=== PATIENT | female | born 1975 | race Caucasian/White ===

== ENCOUNTER 2016-12-17 15:42 | Emergency (ER) | payer BC ==
[2016-12-17] MEDS ORDERED: PENICILLIN G BENZATHINE 1.2 MILLION UNIT/2 ML DISP.SYRIN IM ONE (15:55)
[2016-12-17] MEDS ORDERED: ONDANSETRON ODT 4 MG TAB (6 TAB/DSPK) PO PRN (15:55)
[2016-12-17] MEDS ORDERED: ONDANSETRON 4 MG TAB.RAPDIS SL ONE (15:55)
--- NOTE | 2016-12-17 15:58 | ER Document Report ---
ED General - General Chief Complaint: Nausea/Vomiting Stated Complaint: SORE THROAT,COUGH,VOMITING Time Seen by Provider: 12/17/16 15:50 Mode of Arrival: Ambulatory Information source: Patient TRAVEL OUTSIDE OF THE [place] IN LAST 30 DAYS: No - HPI Patient complains to provider of: sore throat Onset: Last week Onset/Duration: Persistent Quality of pain: Achy Associated symptoms: Body/muscle aches, Chills, Headache, Nausea, Vomiting Exacerbated by: Denies Relieved by: Denies Notes: Patient is a 41-year-old female who presents to the emergency room complaining of sore throat 1 week with subjective fevers, yesterday she had vomiting and diarrhea but has been able to tolerate p.o. intake today, she denies any abdominal pain no sick contacts, she does report coughing up some mucus that is suspect with blood at times - Related Data Allergies/Adverse Reactions: No Known Allergies Allergy (Verified 12/17/16 15:48) Past Medical History - General Information source: Patient - Social History Smoking Status: Current Every Day Smoker Family History: Reviewed & Not Pertinent Patient has suicidal ideation: No Patient has homicidal ideation: No - Past Medical History Cardiac Medical History: Reports: Hx Hypertension Endocrine Medical History: Reports: Hx Diabetes Mellitus Type 2 Renal/ Medical History: Denies: Hx Peritoneal Dialysis Musculoskeltal Medical History: Reports Hx Arthritis, Reports Hx Musculoskeletal Deformity Psychiatric Medical History: Reports: Hx Depression - Immunizations Hx Diphtheria, Pertussis, Tetanus Vaccination: Yes Review of Systems - Review of Systems Constitutional: See HPI EENT: See HPI Cardiovascular: No symptoms reported Respiratory: See HPI Gastrointestinal: See HPI Genitourinary: No symptoms reported Female Genitourinary: No symptoms reported Musculoskeletal: No symptoms reported Skin: No symptoms reported Hematologic/Lymphatic: No symptoms reported Neurological/Psychological: Headaches -: Yes All other systems reviewed and negative Physical Exam - Vital signs Vitals: Temp Pulse Resp BP Pulse Ox 98.3 F 74 16 145/84 H 98 12/17/16 15:46 12/17/16 15:46 12/17/16 15:46 12/17/16 15:46 12/17/16 15:46 Interpretation: Normal - General General appearance: Appears well, Alert - HEENT Head: Normocephalic, Atraumatic Eyes: Normal Conjunctiva: Normal Extraocular movements intact: Yes Eyelashes: Normal Pupils: PERRL Ears: Normal External canal: Normal Tympanic membrane: Normal Sinus: Normal Nasal: Normal Mouth/Lips: Normal Pharynx: Erythema Neck: Other - Submandibular lymphadenopathy - Respiratory Respiratory status: No respiratory distress Chest status: Nontender Breath sounds: Normal Chest palpation: Normal - Cardiovascular Rhythm: Regular Heart sounds: Normal auscultation Murmur: No - Abdominal Inspection: Normal Distension: No distension Bowel sounds: Normal Tenderness: Nontender Organomegaly: No organomegaly - Back Back: Normal, Nontender - Extremities General upper extremity: Normal inspection, Nontender, Normal color, Normal ROM , Normal temperature General lower extremity: Normal inspection, Nontender, Normal color, Normal ROM , Normal temperature, Normal weight bearing. No: Tiffanie's sign - Neurological Neuro grossly intact: Yes Cognition: Normal Orientation: AAOx4 Rea Coma Scale Eye Opening: Spontaneous Saurav Coma Scale Verbal: Oriented Rea Coma Scale Motor: Obeys Commands Saurav Coma Scale Total: 15 Speech: Normal Motor strength normal: LUE, RUE, LLE, RLE Sensory: Normal - Psychological Associated symptoms: Normal affect, Normal mood - Skin Skin Temperature: Warm Skin Moisture: Dry Skin Color: Normal Course - Re-evaluation Re-evalutation: 12/17/16 16:18 Patient's physical exam findings consistent with strep pharyngitis, she was given a Bicillin injection, she is also had some vomiting over the past 2 days, but is tolerating p.o. intake at time of evaluation, she was given a Zofran Dosepak, advised to take Tylenol or Motrin as needed for fever or pain, follow- up with her primary care provider or return if symptoms worsen, patient acknowledges understanding and agreement with this plan - Vital Signs Vital signs: Temp Pulse Resp BP Pulse Ox 98.3 F 74 16 145/84 H 98 12/17/16 15:46 12/17/16 15:46 12/17/16 15:46 12/17/16 15:46 12/17/16 15:46 - Diagnostic Test Radiology reviewed: Image reviewed, Reports reviewed Discharge - Discharge Clinical Impression: Strep pharyngitis Condition: Stable Disposition: HOME, SELF-CARE Instructions: Strep Throat ([facility]) Additional Instructions: Follow up with your primary care provider in one to 2 days. Return to the emergency room immediately if symptoms worsen or any additional concerns. Quit Smoking! Forms: Smoking Cessation Education
--- NOTE | 2016-12-17 16:22 | RADIOLOGY REPORT (SQ) ---
EXAM DESCRIPTION: CHEST PA/LAT COMPLETED DATE/TIME: 12/17/2016 4:13 pm REASON FOR STUDY: cough COMPARISON: None. EXAM PARAMETERS: NUMBER OF VIEWS: two views TECHNIQUE: Digital Frontal and Lateral radiographic views of the chest acquired. RADIATION DOSE: NA LIMITATIONS: none FINDINGS: LUNGS AND PLEURA: No opacities, masses or pneumothorax. No pleural effusion. MEDIASTINUM AND HILAR STRUCTURES: No masses or contour abnormalities. HEART AND VASCULAR STRUCTURES: Heart normal size. No evidence for failure. BONES: No acute findings. HARDWARE: None in the chest. OTHER: No other significant finding. IMPRESSION: NO SIGNIFICANT RADIOGRAPHIC FINDING IN THE CHEST. TECHNICAL DOCUMENTATION: JOB ID: [id number] [email or web address]- All Rights Reserved
[2016-12-17 16:44] VITALS: BP 144/80
== END 2016-12-17 16:40 | disposition home or self-care (01) ==
LOC: ER 15:42
DX: J02.0 Streptococcal pharyngitis (principal); R11.2 Nausea with vomiting, unspecified; J02.9 Acute pharyngitis, unspecified; R05 Cough; R19.7 Diarrhea, unspecified
CPT/HCPCS: 99283; 96372; 71020; S0119; J0561

== ENCOUNTER 2017-08-07 14:14 | Inpatient (IN) | payer BC ==
[2017-08-07] MEDS ORDERED: ACETAMINOPHEN 325 MG TABLET PO ONE (14:38)
[2017-08-07] MEDS ORDERED: NORMAL SALINE 1000 ML 1,000 ML IV ONE (14:38)
[2017-08-07] MEDS ORDERED: AZITHROMYCIN INJ 500 MG VIAL IV ONE (14:38)
[2017-08-07] MEDS ORDERED: IPRATROPIUM/ALBUTEROL 0.5-2.5 MG/3 ML AMPUL NEB ONE ×2 (14:39→15:29)
[2017-08-07] MEDS ORDERED: CEFTRIAXONE 2 GM/D5W RTU 2 GM/50 ML RTUPB IV ONE (14:39)
--- NOTE | 2017-08-07 14:40 | ER Document Report ---
ED Medical Screen (RME) - General Chief Complaint: Breathing Difficulty Stated Complaint: DIFFICULTY BREATHING Time Seen by Provider: 08/07/17 14:38 Notes: 3 days of cough cold congestion shortness of breath and fevers. Patient is a smoker. She feels she is very tight. Oxygen saturations are noted to be 85% on room air with tachypnea and tachycardia at triage. TRAVEL OUTSIDE OF THE [place] IN LAST 30 DAYS: No - Related Data Allergies/Adverse Reactions: No Known Allergies Allergy (Verified 08/07/17 14:19) Past Medical History - Past Medical History Cardiac Medical History: Reports: Hx Hypertension Endocrine Medical History: Reports: Hx Diabetes Mellitus Type 2 Renal/ Medical History: Denies: Hx Peritoneal Dialysis Musculoskeltal Medical History: Reports Hx Arthritis, Reports Hx Musculoskeletal Deformity Psychiatric Medical History: Reports: Hx Depression - Immunizations Hx Diphtheria, Pertussis, Tetanus Vaccination: Yes Physical Exam - Vital signs Vitals: Temp Pulse Resp BP Pulse Ox 97.8 F 131 H 28 H 163/100 H 86 L 08/07/17 14:25 08/07/17 14:25 08/07/17 14:25 08/07/17 14:25 08/07/17 14:25 Course - Vital Signs Vital signs: Temp Pulse Resp BP Pulse Ox 97.8 F 131 H 28 H 163/100 H 86 L 08/07/17 14:25 08/07/17 14:25 08/07/17 14:25 08/07/17 14:25 08/07/17 14:25
[2017-08-07] MEDS ORDERED: METHYLPREDNISOLONE INJ 125 MG/2 ML SDV IV ONE (14:53)
--- NOTE | 2017-08-07 14:59 | ER Document Report ---
ED Respiratory Problem - General Chief Complaint: Breathing Difficulty Stated Complaint: DIFFICULTY BREATHING Time Seen by Provider: 08/07/17 14:38 Information source: Patient, Relative TRAVEL OUTSIDE OF THE [place] IN LAST 30 DAYS: No - HPI Patient complains to provider of: Short of breath Onset: Yesterday Duration: Worse/persistent Initiating Event: Other - None Quality of pain: No pain Severity: Severe Pain Level: 5 Context: Smoker Chest pain/discomfort: Tightness, Worse with deep breaths Cough: Nonproductive At home treatment: denies: Bronchodilators, CPAP, Diuretics, Inhaled steroids, Oral steroids, Oxygen, Singulair, Theophylline Associated symptoms: Congestion, Cough, Difficulty breathing, Heart racing, Short of breath. denies: Fever Similar symptoms previously: No Recently seen / treated by doctor: No - Related Data Allergies/Adverse Reactions: No Known Allergies Allergy (Verified 08/07/17 14:19) Past Medical History - General Information source: Patient - Social History Smoking Status: Current Every Day Smoker - One half packs per day Smoking Education Provided: Yes Frequency of alcohol use: None Drug Abuse: None Lives with: Spouse/Significant other Family History: Reviewed & Not Pertinent Patient has suicidal ideation: No Patient has homicidal ideation: No - Past Medical History Cardiac Medical History: Reports: Hx Hypertension Pulmonary Medical History: Reports: Other - Asthma with EENT Medical History: Reports: None Neurological Medical History: Reports: None Endocrine Medical History: Reports: Hx Diabetes Mellitus Type 2 Renal/ Medical History: Reports: None. Denies: Hx Peritoneal Dialysis Malignancy Medical History: Reports: None GI Medical History: Reports: None Musculoskeltal Medical History: Reports Hx Arthritis, Reports Hx Musculoskeletal Deformity Psychiatric Medical History: Reports: Hx Depression Traumatic Medical History: Reports: None Surgical Hx: Negative Past Surgical History: Reports: None - Immunizations Hx Diphtheria, Pertussis, Tetanus Vaccination: Yes History of Influenza Vaccine for 04/2017 - 08/2017 Season: No Review of Systems - Review of Systems Constitutional: No symptoms reported EENT: See HPI Cardiovascular: No symptoms reported Respiratory: See HPI Gastrointestinal: No symptoms reported Genitourinary: No symptoms reported Female Genitourinary: No symptoms reported Musculoskeletal: No symptoms reported Skin: No symptoms reported Hematologic/Lymphatic: No symptoms reported Neurological/Psychological: No symptoms reported Physical Exam - Vital signs Vitals: Temp Pulse Resp BP Pulse Ox 97.8 F 131 H 28 H 163/100 H 86 L 08/07/17 14:25 08/07/17 14:25 08/07/17 14:25 08/07/17 14:25 08/07/17 14:25 Interpretation: Tachycardic, Hypoxic - Notes Notes: PHYSICAL EXAMINATION: GENERAL: She with nonrebreather mask on with nebulizer infusing. Patient marked respiratory distress. HEAD: Atraumatic, normocephalic. EYES: Pupils equal round and reactive to light, extraocular movements intact, conjunctiva are normal. ENT: Nares patent, oropharynx clear without exudates. Moist mucous membranes. NECK: Normal range of motion, supple without lymphadenopathy LUNGS: Patient sitting up in bed. Wheezing and rhonchi bilaterally. Positive accessory muscle use. Tachypnic HEART:tachy with Regular rhythm without murmurs ABDOMEN: Soft, nontender, nondistended abdomen. No guarding, no rebound. No masses appreciated. Female : deferred Musculoskeletal: Normal range of motion, no pitting or edema. No cyanosis. NEUROLOGICAL: Cranial nerves grossly intact. Normal speech, normal gait. Normal sensory, motor exams PSYCH: anxious SKIN: Warm, Dry, normal turgor, no rashes or lesions noted. Course - Re-evaluation Re-evalutation: 08/07/17 15:36 To go back and reexamine the patient. She is 96% on 5 L. Her albuterol has finished. Patient still has expiratory and inspiratory wheezing bilaterally with mild respiratory distress. She also has bilateral rhonchi. Chest x-ray looks within normal limits. I will order continuous nebulizer for the patient. I did talk to Dr. Singletary patient will be admitted to telemetry. It is aware and agreeable to the plan. 08/07/17 15:38 Labs- All tests 24 hr 08/07/17 08/07/17 08/07/17 14:55 14:55 14:55 WBC 20.5 H RBC 3.90 Hgb 12.2 Hct 35.8 L MCV 92 MCH 31.4 MCHC 34.2 RDW 14.3 H Plt Count 427 Total Counted 100 Seg Neutrophils % Not Reportable Seg Neuts % (Manual) 80 H Lymphocytes % Not Reportable Lymphocytes % (Manual) 6 L Monocytes % Not Reportable Monocytes % (Manual) 7 Eosinophils % Not Reportable Eosinophils % (Manual) 7 H Basophils % Not Reportable Basophils % (Manual) 0 Absolute Neutrophils Not Reportable Abs Neuts (Manual) 16.4 H Absolute Lymphocytes Not Reportable Abs Lymphs (Manual) 1.2 Absolute Monocytes Not Reportable Abs Monocytes (Manual) 1.4 Absolute Eosinophils Not Reportable Absolute Eos (Manual) 1.4 H Absolute Basophils Not Reportable Abs Basophils (Manual) 0.0 Toxic Granulation SLIGHT Platelet Comment ADEQUATE Polychromasia SLIGHT VBG pH VBG pCO2 VBG HCO3 VBG Base Excess Sodium 137.4 Potassium 3.7 Chloride 99 Carbon Dioxide 30 Anion Gap 8 BUN 7 Creatinine 0.57 Est GFR ( Amer) > 60 Est GFR (Non-Af Amer) > 60 Glucose 124 H Lactic Acid 1.4 Calcium 9.9 Total Bilirubin 0.4 Direct Bilirubin 0.4 Neonat Total Bilirubin Not Reportable Neonat Direct Bilirubin Not Reportable Neonat Indirect Bili Not Reportable AST 23 ALT 18 Alkaline Phosphatase 80 Total Protein 7.3 Albumin 4.2 08/07/17 14:55 WBC RBC Hgb Hct MCV MCH MCHC RDW Plt Count Total Counted Seg Neutrophils % Seg Neuts % (Manual) Lymphocytes % Lymphocytes % (Manual) Monocytes % Monocytes % (Manual) Eosinophils % Eosinophils % (Manual) Basophils % Basophils % (Manual) Absolute Neutrophils Abs Neuts (Manual) Absolute Lymphocytes Abs Lymphs (Manual) Absolute Monocytes Abs Monocytes (Manual) Absolute Eosinophils Absolute Eos (Manual) Absolute Basophils Abs Basophils (Manual) Toxic Granulation Platelet Comment Polychromasia VBG pH 7.41 VBG pCO2 45.9 VBG HCO3 28.3 VBG Base Excess 3.1 Sodium Potassium Chloride Carbon Dioxide Anion Gap BUN Creatinine Est GFR ( Amer) Est GFR (Non-Af Amer) Glucose Lactic Acid Calcium Total Bilirubin Direct Bilirubin Neonat Total Bilirubin Neonat Direct Bilirubin Neonat Indirect Bili AST ALT Alkaline Phosphatase Total Protein Albumin 08/07/17 15:39 Chest X-Ray 08/07/17 14:38 IMPRESSION: NO ACUTE RADIOGRAPHIC FINDING IN THE CHEST. - Vital Signs Vital signs: Temp Pulse Resp BP Pulse Ox 97.8 F 131 H 28 H 163/100 H 86 L 08/07/17 14:25 08/07/17 14:25 08/07/17 14:25 08/07/17 14:25 08/07/17 14:25 - Laboratory Result Diagrams: 08/07/17 14:55 08/07/17 14:55 Laboratory results interpreted by me: 08/07/17 08/07/17 14:55 14:55 WBC 20.5 H Hct 35.8 L RDW 14.3 H Glucose 124 H - Diagnostic Test Radiology reviewed: Image reviewed, Reports reviewed Discharge - Discharge Clinical Impression: Hypoxia, Respiratory distress, Wheezing Disposition: ADMITTED INPATIENT Admitting Provider: [facility] Unit Admitted: Telemetry
[2017-08-07 15:11] LABS: VENOUS BLOOD BASE EXCESS 3.1 mmol/L; VENOUS BLOOD HCO3 28.3 mmol/L (20-32); VENOUS BLOOD PCO2 45.9 mmHg (35-63); VENOUS BLOOD PH 7.41 (7.30-7.42)
[2017-08-07 15:13] LABS: HEMATOCRIT 35.8 % (36.0-47.0); HEMOGLOBIN 12.2 g/dL (12.0-15.5); MEAN CORPUSCULAR HEMOGLOBIN 31.4 pg (27.0-33.4); MEAN CORPUSCULAR HGB CONC 34.2 g/dL (32.0-36.0); MEAN CORPUSCULAR VOLUME 92 fl (80-97); PLATELET COUNT 427 10^3/uL (150-450); RED CELL DISTRIBUTION WIDTH 14.3 % (11.5-14.0); WHITE BLOOD COUNT 20.5 10^3/uL (4.0-10.5)
--- NOTE | 2017-08-07 15:13 | RADIOLOGY REPORT (SQ) ---
EXAM DESCRIPTION: CHEST SINGLE VIEW COMPLETED DATE/TIME: 08/07/2017 3:06 pm REASON FOR STUDY: sob COMPARISON: 12/17/2016 chest film EXAM PARAMETERS: NUMBER OF VIEWS: One view. TECHNIQUE: Single frontal radiographic view of the chest acquired. RADIATION DOSE: NA LIMITATIONS: None. FINDINGS: LUNGS AND PLEURA: No opacities, masses or pneumothorax. No pleural effusion. MEDIASTINUM AND HILAR STRUCTURES: No masses. Contour normal. HEART AND VASCULAR STRUCTURES: Heart normal in size. Normal vasculature. BONES: No acute findings. HARDWARE: None in the chest. OTHER: No other significant finding. IMPRESSION: NO ACUTE RADIOGRAPHIC FINDING IN THE CHEST. TECHNICAL DOCUMENTATION: JOB ID: [id number] [employer]- All Rights Reserved
[2017-08-07 15:25] LABS: ALANINE AMINOTRANSFERASE 18 U/L (9-52); ALBUMIN 4.2 g/dL (3.5-5.0); ALKALINE PHOSPHATASE 80 U/L (38-126); ANION GAP 8 (5-19); ASPARTATE AMINO TRANSFERASE 23 U/L (14-36); BILIRUBIN,DIRECT 0.4 mg/dL (0.0-0.4); BILIRUBIN,TOTAL 0.4 mg/dL (0.2-1.3); BLOOD UREA NITROGEN 7 mg/dL (7-20); CALCIUM 9.9 mg/dL (8.4-10.2); CARBON DIOXIDE 30 mmol/L (22-30); CHLORIDE 99 mmol/L (98-107); GLUCOSE 124 mg/dL (75-110); POTASSIUM 3.7 mmol/L (3.6-5.0); SODIUM 137.4 mmol/L (137-145); TOTAL PROTEIN 7.3 g/dL (6.3-8.2)
[2017-08-07] MEDS ORDERED: ALBUTEROL SULFATE 0.083% NEB 2.5 MG/3 ML AMPUL NEB ONE (15:29)
[2017-08-07 15:35] LABS: ABSOLUTE LYMPHOCYTES# (MANUAL) 1.2 10^3/uL (0.5-4.7); ABSOLUTE MONOCYTES # (MANUAL) 1.4 10^3/uL (0.1-1.4); ABSOLUTE NEUTROPHILS# (MANUAL) 16.4 10^3/uL (1.7-8.2); BASOPHILS % (MANUAL) 0 % (0-2); EOSINOPHILS % (MANUAL) 7 % (0-6); LYMPHOCYTES % (MANUAL) 6 % (13-45); MONOCYTES % (MANUAL) 7 % (3-13); PLATELET COMMENT ADEQUATE; POLYCHROMASIA SLIGHT; SEGMENTED NEUTROPHILS % (MAN) 80 % (42-78); TOTAL CELLS COUNTED 100; TOXIC GRANULATION SLIGHT
[2017-08-07] MEDS: MAGNESIUM SULFATE/D5W 1 GM/100 ML RTUPB IV SCH ×2 (16:16→17:37)
[2017-08-07 18:33] LABS: APPEARANCE,URINE SLIGHTLY-CLOUDY; BILIRUBIN,URINE NEGATIVE (NEGATIVE); COLOR,URINE YELLOW; GLUCOSE, URINE NEGATIVE (NEGATIVE); KETONES,URINE NEGATIVE (NEGATIVE); LEUKOCYTE ESTERASE,URINE NEGATIVE (NEGATIVE); NITRITE,URINE NEGATIVE (NEGATIVE); PROTEIN,URINE 30 mg/dL (NEGATIVE); URINE SPECIFIC GRAVITY 1.013; UROBILINOGEN,URINE NEGATIVE mg/dL (<2.0)
[2017-08-07] MEDS ORDERED: (PENDING PHARMACY ID) (Oxycodone Hcl/Acetaminophen [Percocet 10-325 Mg Tablet] 1 EACH) PO PRN (21:01)
--- NOTE | 2017-08-07 21:05 | PDOC H&P ---
History of Present Illness Admission Date/PCP: 08/07/17 16:30 KELSEA KING MD History of Present Illness: TANMAY SIMPSON is a 42 year old fEMALE She came to the emergency room this afternoon for evaluation of shortness of breath coughing wheezing, progressive for the last 3 days. She was seen and evaluated in the emergency room when she arrived the oxygen saturation was 85% on room air the hemogram, WBC 20,000 with a left shift, she was treated with bronchodilators, IV antibiotic. The chest x- ray that was done did not show any acute infiltrate to suggest pneumonia. Past Medical History Cardiac Medical History: Reports: Hypertension Pulmonary Medical History: Reports: Other - Asthma with Endocrine Medical History: Reports: Diabetes Mellitus Type 2 Psychiatric Medical History: Reports: Depression Traumatic Medical History: Reports: None Past Surgical History Past Surgical History: Reports: None Social History Lives with: Spouse/Significant other Smoking Status: Current Every Day Smoker Cigarettes Packs Per Day: 2 Number of Years Smokin Last Time Smoked: 08/04/17 Frequency of Alcohol Use: Rare Hx Recreational Drug Use: No Drugs: None Hx Prescription Drug Abuse: No - Advance Directive Resuscitation Status: Full Code Family History Family History: Reviewed & Not Pertinent Parental Family History Reviewed: Yes Children Family History Reviewed: Yes Sibling(s) Family History Reviewed.: Yes Medication/Allergy Home Medications: Amitriptyline HCl [Elavil 10 Mg Tablet] 10 mg PO QHS 08/07/17 Lisinopril/Hydrochlorothiazide [Lisinopril-Hctz 20-25 mg Tab] 1 each PO DAILY Metformin HCl [Glucophage 500 mg Tablet] 500 mg PO BIDACBS 08/07/17 Naproxen [Naprosyn] 500 mg PO BID 08/07/17 Oxycodone HCl/Acetaminophen [Percocet 10-325 Mg Tablet] 1 each PO Q6HP PRN 08/07 Tizanidine HCl [Zanaflex 4 Mg Tablet] 4 mg PO QHS 08/07/17 Allergies/Adverse Reactions: No Known Allergies Allergy (Verified 08/07/17 14:19) Review of Systems Constitutional: ABSENT: chills, fever(s), headache(s), weight gain, weight loss Eyes: ABSENT: visual disturbances Ears: ABSENT: hearing changes Cardiovascular: PRESENT: dyspnea on exertion Respiratory: PRESENT: cough, dyspnea Gastrointestinal: ABSENT: abdominal pain, constipation, diarrhea, hematemesis, hematochezia, nausea, vomiting Genitourinary: ABSENT: dysuria, hematuria Musculoskeletal: ABSENT: joint swelling Integumentary: ABSENT: rash, wounds Neurological: ABSENT: abnormal gait, abnormal speech, confusion, dizziness, focal weakness, syncope Psychiatric: ABSENT: anxiety, depression, homidical ideation, suicidal ideation Endocrine: ABSENT: cold intolerance, heat intolerance, menstrual abnormalities, polydipsia, polyuria Hematologic/Lymphatic: ABSENT: easy bleeding, easy bruising, lymphadenopathy Physical Exam Vital Signs: Temp Pulse Resp BP Pulse Ox 98.1 F 109 H 17 158/88 H 96 08/07/17 19:58 08/07/17 20:09 08/07/17 19:58 08/07/17 19:58 08/07/17 19:58 General appearance: PRESENT: mild distress Head exam: PRESENT: atraumatic, normocephalic Eye exam: PRESENT: conjunctiva pink, EOMI, PERRLA Ear exam: PRESENT: normal external ear exam Mouth exam: PRESENT: moist, tongue midline Respiratory exam: PRESENT: accessory muscle use, retraction, wheezes Cardiovascular exam: PRESENT: RRR, +S1, +S2 Pulses: PRESENT: normal dorsalis pedis pul, +2 pedal pulses bilateral Vascular exam: PRESENT: normal capillary refill GI/Abdominal exam: PRESENT: normal bowel sounds, soft Rectal exam: PRESENT: deferred Neurological exam: PRESENT: alert, awake, oriented to person, oriented to place , oriented to time, oriented to situation, CN II-XII grossly intact Psychiatric exam: PRESENT: appropriate affect, normal mood Skin exam: PRESENT: dry, intact, warm. ABSENT: cyanosis, rash Results Laboratory Results: 08/07/17 17:35 Urine Color YELLOW Urine Appearance SLIGHTLY-CLOUDY Urine pH 6.0 Ur Specific Springer 1.013 Urine Protein 30 H Urine Glucose (UA) NEGATIVE Urine Ketones NEGATIVE Urine Blood NEGATIVE Urine Nitrite NEGATIVE Ur Leukocyte Esterase NEGATIVE Urine WBC (Auto) 7 Urine RBC (Auto) 3 Impressions: Chest X-Ray 08/07/17 14:38 IMPRESSION: NO ACUTE RADIOGRAPHIC FINDING IN THE CHEST. Assessment & Plan - Diagnosis (1) Acute hypoxemic respiratory failure Is this a current diagnosis for this admission?: Yes Plan: Patient presented with acute hypoxemic respiratory failure, differential diagnoses include pneumonia, acute COPD pulmonary embolism the chest x-ray that was done was negative, CTA chest will be ordered to rule out pulmonary embolism , pneumonia or other causes, on admission she was wheezing, this could be from acute COPD, the leukocytosis is worrisome for infectious process or other causes , she is admitted to be started on IV antibiotic, bronchodilators.CTA chest was done it was negative for any pulmonary embolus, there was groundglass appearance of the parenchyma of the lung there was no definite infiltrate, this is probably acute COPD, she is a diabetic will order off on steroid for now will be treated aggressively with bronchodilators if no relief we start patient on intravenous Solu-Medrol
[2017-08-07 21:30] LABS: ARTERIAL BLOOD BASE EXCESS 0.5 mmol/L; ARTERIAL BLOOD FIO2 28%; ARTERIAL BLOOD H2CO3 1.22 mmol/L (1.05-1.35); ARTERIAL BLOOD HCO3 25.1 mmol/L (20-26); ARTERIAL BLOOD O2 SATURATION 95.8 % (94-98); ARTERIAL BLOOD PCO2 40.4 mmHg (35-45); ARTERIAL BLOOD PH 7.41 (7.35-7.45); ARTERIAL BLOOD PO2 78.8 mmHg (80-100); ARTERIAL BLOOD TOTAL CO2 26.3 mmol/L (21-25)
[2017-08-07 21:51] LABS: CREATINE KINASE 112 U/L (30-135); LIPASE 13.4 U/L (23-300); PHOSPHORUS 3.1 mg/dL (2.5-4.5)
[2017-08-07] MEDS ORDERED: METFORMIN HCL 500 MG TABLET PO ONE (22:00)
[2017-08-07 22:05] LABS: AMYLASE < 30 U/L (30-110)
[2017-08-07] MEDS: IPRATROPIUM/ALBUTEROL 0.5-2.5 MG/3 ML AMPUL NEB SCH (22:05)
[2017-08-07 22:08] LABS: FREE T4 (FREE THYROXINE) 1.22 ng/dL (0.78-2.19)
[2017-08-07 22:15] LABS: NT PRO BNP 472 pg/mL (<125)
[2017-08-07] MEDS: OXYCODONE HCL IR 5 MG TABLET PO PRN (22:20)
[2017-08-07] MEDS: LEVOFLOXACIN 750 MG/D5W RTU 750 MG/150 ML RTUPB IV SCH (22:20)
[2017-08-07] MEDS: NORMAL SALINE 1000 ML 1,000 ML IV PRN (22:21)
[2017-08-07 22:22] LABS: THYROID STIMULATING HORMONE 0.45 uIU/mL (0.47-4.68)
--- NOTE | 2017-08-07 22:22 | RADIOLOGY REPORT (SQ) ---
EXAM DESCRIPTION: CTA CHEST COMPLETED DATE/TIME: 08/07/2017 9:54 pm REASON FOR STUDY: shortness of breath COMPARISON: None TECHNIQUE: CT scan of the chest performed using helical scanning technique with dynamic intravenous contrast injection. Images reviewed with lung, soft tissue and bone windows. Reconstructed coronal and sagittal MPR images reviewed. Additional 3 dimensional post-processing performed to develop Maximal Intensity Projection images (MO P). All images stored on PACS. All CT scanners at this facility use dose modulation, iterative reconstruction, and/or weight based d osing when appropriate to reduce radiation dose to as low as reasonably achievable (ALARA). [facility]: Dose Right [facility]: CareDose [facility]: Dose Right [facility]: Teradose 4D [facility]: [employer] CONTRAST TYPE AND DOSE: contrast/concentration: Isovue 370.00 mg/ml; Total Contrast Delivered: 80.0 ml; Total Saline Delivered: 70.0 ml Contrast bolus optimized for the pulmonary arteries. Not diagnostic for the aorta. RENAL FUNCTION: None required. The patient is less than 50 years old. RADIATION DOSE: CT Rad equipment meets quality standard of care and radiation dose reduction techniq ues were employed. CTDIvol: 14.9 - 32.8 mGy. DLP: 1250 mGy-cm. . LIMITATIONS: Mild breathing motion artifact. FINDINGS: LUNGS AND PLEURA: Scattered areas of ground-glass opacity and subsegmental atelectasis are present in both lungs. No masses, dense consolidation, pneumothorax. No pleural effusions, calcifi cations. AORTA AND GREAT VESSELS: No aneurysm. Contrast bolus not optimized for the aorta. HEART: No pericardial effusion. No significant coronary artery calcifications. PULMONARY ARTERIES: No emboli visualized in the main pulmonary arteries or the segmental branches. HILAR AND MEDIASTINAL STRUCTURES: Small reactive appearing nodes. HARDWARE: None in the chest. UPPER ABDOMEN: No significant findings. Limited exam. THYROID AND OTHER SOFT TISSUES: No masses. No adenopathy. BONES: No acute or significant finding. 3D MIPS: Confirm above findings. OTHER: No other significant finding. IMPRESSION: No emboli visualized in the main pulmonary arteries or the segmental branches.Scattered areas of ground-glass opacity and subsegmental atelectasis are present in both lungs, nonspecific fin dings. No consolidation or pleural effusion. COMMENT: Quality ID # [id number]: Final reports with documentation of one or more dose reduction techniques (e.g., Automated exposure control, adjustment of the mA and/or kV according to patient size, use of iterative reconstruction technique) TECHNICAL DOCUMENTATION: JOB ID: [id number] [employer]- All Rights Reserved
[2017-08-07 22:24] LABS: TROPONIN I < 0.012 ng/mL
[2017-08-08] MEDS: IPRATROPIUM/ALBUTEROL 0.5-2.5 MG/3 ML AMPUL NEB SCH ×11 (00:15→21:18)
[2017-08-08] MEDS: OXYCODONE-ACETAMINOPHEN 5-325 MG TABLET PO PRN ×3 (00:43→15:58)
[2017-08-08 00:56] LABS: APPEARANCE,URINE CLEAR; BILIRUBIN,URINE NEGATIVE (NEGATIVE); COLOR,URINE YELLOW; GLUCOSE, URINE NEGATIVE (NEGATIVE); KETONES,URINE NEGATIVE (NEGATIVE); LEUKOCYTE ESTERASE,URINE NEGATIVE (NEGATIVE); NITRITE,URINE NEGATIVE (NEGATIVE); PROTEIN,URINE 100 mg/dL (NEGATIVE); URINE SPECIFIC GRAVITY 1.056; UROBILINOGEN,URINE NEGATIVE mg/dL (<2.0)
[2017-08-08 01:09] LABS: URINE AMPHETAMINES SCREEN NEGATIVE; URINE BENZODIAZEPINES SCREEN NEGATIVE; URINE COCAINE SCREEN NEGATIVE; URINE METHADONE SCREEN NEGATIVE; URINE PHENCYCLIDINE SCREEN NEGATIVE
[2017-08-08 01:18] LABS: URINE MARIJUANA (THC) SCREEN UNCONFIRMED POSITIVE
[2017-08-08 01:20] LABS: URINE BARBITURATES SCREEN UNCONFIRMED POSITIVE
[2017-08-08 03:57] LABS: ABSOLUTE BASOPHILS # (AUTO) 0.1 10^3/uL (0.0-0.2); ABSOLUTE LYMPHOCYTES (AUTO) 0.9 10^3/uL (0.5-4.7); ABSOLUTE MONOCYTES (AUTO) 0.2 10^3/uL (0.1-1.4); ABSOLUTE NEUT (AUTO) 11.2 10^3/uL (1.7-8.2); BASOPHILS % (AUTO) 0.6 % (0-2); EOSINOPHILS % (AUTO) 0.2 % (0-6); HEMOGLOBIN 11.3 g/dL (12.0-15.5); MEAN CORPUSCULAR HGB CONC 34.1 g/dL (32.0-36.0); MEAN CORPUSCULAR VOLUME 91 fl (80-97); MONOCYTES % (AUTO) 1.8 % (3-13); PLATELET COUNT 411 10^3/uL (150-450); RED BLOOD COUNT 3.63 10^6/uL (3.72-5.28); RED CELL DISTRIBUTION WIDTH 14.5 % (11.5-14.0); SEGMENTED NEUTROPHILS % (AUTO) 90.4 % (42-78); TOTAL CELLS COUNTED % (AUTO) 100 %; WHITE BLOOD COUNT 12.4 10^3/uL (4.0-10.5)
[2017-08-08 04:11] LABS: ALANINE AMINOTRANSFERASE 23 U/L (9-52); ALBUMIN 3.9 g/dL (3.5-5.0); ALKALINE PHOSPHATASE 69 U/L (38-126); ANION GAP 15 (5-19); ASPARTATE AMINO TRANSFERASE 21 U/L (14-36); BILIRUBIN,DIRECT 0.2 mg/dL (0.0-0.4); BILIRUBIN,TOTAL 0.2 mg/dL (0.2-1.3); BLOOD UREA NITROGEN 8 mg/dL (7-20); CALCIUM 9.7 mg/dL (8.4-10.2); CARBON DIOXIDE 26 mmol/L (22-30); CHLORIDE 98 mmol/L (98-107); CHOLESTEROL 178.78 mg/dL (0-200); CREATINE KINASE 120 U/L (30-135); GLUCOSE 186 mg/dL (75-110); SODIUM 138.5 mmol/L (137-145); TOTAL PROTEIN 6.8 g/dL (6.3-8.2); TRIGLYCERIDES 56 mg/dL (<150)
[2017-08-08 04:21] LABS: CREATINE KINASE MB 1.72 ng/mL (<4.55)
[2017-08-08 04:22] LABS: DIRECT LDL 136 mg/dL (<100)
[2017-08-08 04:23] LABS: TROPONIN I < 0.012 ng/mL
[2017-08-08] MEDS: OXYCODONE HCL IR 5 MG TABLET PO PRN ×2 (05:41→11:28)
[2017-08-08] MEDS: METFORMIN HCL 500 MG TABLET PO SCH ×2 (09:17→15:58)
[2017-08-08] MEDS: ENOXAPARIN SODIUM INJ 40 MG/0.4 ML DISP.SYRIN SUBCUT SCH (09:18)
[2017-08-08 11:15] LABS: CREATINE KINASE MB 2.13 ng/mL (<4.55)
[2017-08-08 11:16] LABS: TROPONIN I < 0.012 ng/mL
[2017-08-08] MEDS ORDERED: (PENDING PHARMACY ID) (Lisinopril/Hydrochlorothiazide [Lisinopril-Hctz 20-25 Mg Tab] 1 EAC PO SCH (19:15)
[2017-08-08] MEDS ORDERED: OXYCODONE-ACETAMINOPHEN 5-325 MG TABLET PO ONE (20:30)
[2017-08-08] MEDS ORDERED: OXYCODONE HCL IR 5 MG TABLET PO ONE (20:30)
--- NOTE | 2017-08-08 21:17 | PDOC PROGRESS REPORT ---
Subjective Progress Note for:: 08/08/17 Subjective:: Patient was admitted yesterday for the management of acute hypoxemic respiratory failure due to COPD exacerbation she felt better but on chest auscultation she still wheezing, she will be treated with IV Solu-Medrol Reason For Visit: ACUTE HYPOXEMIC RESPIRATORY FAILURE, CAUSE COPD Physical Exam Vital Signs: Temp Pulse Resp BP Pulse Ox 98.8 F 108 H 18 162/83 H 97 08/08/17 16:00 08/08/17 19:00 08/08/17 18:07 08/08/17 16:00 08/08/17 18:07 Intake & Output 08/07/17 08/08/17 08/09/17 06:59 06:59 06:59 Intake Total 2390 2160 Output Total 1000 Balance 2390 1160 Weight 106 kg General appearance: PRESENT: mild distress Eye exam: PRESENT: PERRLA Respiratory exam: PRESENT: wheezes Cardiovascular exam: PRESENT: +S1, +S2 GI/Abdominal exam: PRESENT: soft Neurological exam: PRESENT: alert Results Laboratory Results: 08/08/17 03:45 08/08/17 03:45 08/07/17 08/07/17 08/07/17 21:20 21:20 21:20 WBC RBC Hgb Hct MCV MCH MCHC RDW Plt Count Seg Neutrophils % Lymphocytes % Monocytes % Eosinophils % Basophils % Absolute Neutrophils Absolute Lymphocytes Absolute Monocytes Absolute Eosinophils Absolute Basophils Carbonic Acid HCO3/H2CO3 Ratio ABG pH ABG pCO2 ABG pO2 ABG HCO3 ABG O2 Saturation ABG Base Excess FiO2 Sodium Potassium Chloride Carbon Dioxide Anion Gap BUN Creatinine Est GFR ( Amer) Est GFR (Non-Af Amer) Glucose Calcium Phosphorus 3.1 Total Bilirubin AST ALT Alkaline Phosphatase Ammonia 8.7 L Total Protein Albumin Triglycerides Cholesterol LDL Cholesterol Direct VLDL Cholesterol HDL Cholesterol Amylase < 30 L Lipase 13.4 L TSH 0.45 L Free T4 1.22 Urine Color Urine Appearance Urine pH Ur Specific [place] Urine Protein Urine Glucose (UA) Urine Ketones Urine Blood Urine Nitrite Ur Leukocyte Esterase Urine WBC (Auto) Urine RBC (Auto) 08/07/17 08/08/17 08/08/17 21:20 00:30 03:45 WBC 12.4 H RBC 3.63 L Hgb 11.3 L Hct 33.0 L MCV 91 MCH 31.0 MCHC 34.1 RDW 14.5 H Plt Count 411 Seg Neutrophils % 90.4 H Lymphocytes % 7.0 L Monocytes % 1.8 L Eosinophils % 0.2 Basophils % 0.6 Absolute Neutrophils 11.2 H Absolute Lymphocytes 0.9 Absolute Monocytes 0.2 Absolute Eosinophils 0.0 Absolute Basophils 0.1 Carbonic Acid 1.22 HCO3/H2CO3 Ratio 20:1 ABG pH 7.41 ABG pCO2 40.4 ABG pO2 78.8 L ABG HCO3 25.1 ABG O2 Saturation 95.8 ABG Base Excess 0.5 FiO2 28% Sodium Potassium Chloride Carbon Dioxide Anion Gap BUN Creatinine Est GFR ( Amer) Est GFR (Non-Af Amer) Glucose Calcium Phosphorus Total Bilirubin AST ALT Alkaline Phosphatase Ammonia Total Protein Albumin Triglycerides Cholesterol LDL Cholesterol Direct VLDL Cholesterol HDL Cholesterol Amylase Lipase TSH Free T4 Urine Color YELLOW Urine Appearance CLEAR Urine pH 6.0 Ur Specific [place] 1.056 Urine Protein 100 H Urine Glucose (UA) NEGATIVE Urine Ketones NEGATIVE Urine Blood NEGATIVE Urine Nitrite NEGATIVE Ur Leukocyte Esterase NEGATIVE Urine WBC (Auto) 3 Urine RBC (Auto) 13 08/08/17 03:45 WBC RBC Hgb Hct MCV MCH MCHC RDW Plt Count Seg Neutrophils % Lymphocytes % Monocytes % Eosinophils % Basophils % Absolute Neutrophils Absolute Lymphocytes Absolute Monocytes Absolute Eosinophils Absolute Basophils Carbonic Acid HCO3/H2CO3 Ratio ABG pH ABG pCO2 ABG pO2 ABG HCO3 ABG O2 Saturation ABG Base Excess FiO2 Sodium 138.5 Potassium 4.0 Chloride 98 Carbon Dioxide 26 Anion Gap 15 BUN 8 Creatinine 0.54 Est GFR ( Amer) > 60 Est GFR (Non-Af Amer) > 60 Glucose 186 H Calcium 9.7 Phosphorus Total Bilirubin 0.2 AST 21 ALT 23 Alkaline Phosphatase 69 Ammonia Total Protein 6.8 Albumin 3.9 Triglycerides 56 Cholesterol 178.78 LDL Cholesterol Direct 136 H VLDL Cholesterol 11.0 HDL Cholesterol 44 Amylase Lipase TSH Free T4 Urine Color Urine Appearance Urine pH Ur Specific [place] Urine Protein Urine Glucose (UA) Urine Ketones Urine Blood Urine Nitrite Ur Leukocyte Esterase Urine WBC (Auto) Urine RBC (Auto) 08/07/17 08/07/17 08/07/17 21:20 21:20 21:20 Creatine Kinase 112 104 CK-MB (CK-2) 1.10 Troponin I < 0.012 NT-Pro-B Natriuret Pep 472 H 08/07/17 08/08/17 08/08/17 21:20 03:45 03:45 Creatine Kinase 120 CK-MB (CK-2) Cancelled 1.72 Troponin I Cancelled < 0.012 NT-Pro-B Natriuret Pep 08/08/17 08/08/17 10:06 10:06 Creatine Kinase 115 CK-MB (CK-2) 2.13 Troponin I < 0.012 NT-Pro-B Natriuret Pep Impressions: Chest/Abdomen CTA 08/07/17 00:00 IMPRESSION: No emboli visualized in the main pulmonary arteries or the segmental branches.Scattered areas of ground-glass opacity and subsegmental atelectasis are present in both lungs, nonspecific findings. No consolidation or pleural effusion. Chest X-Ray 08/07/17 14:38 IMPRESSION: NO ACUTE RADIOGRAPHIC FINDING IN THE CHEST. Assessment & Plan - Diagnosis (1) Acute hypoxemic respiratory failure Is this a current diagnosis for this admission?: Yes (2) Acute exacerbation of chronic obstructive pulmonary disease (COPD) Is this a current diagnosis for this admission?: Yes Plan: Start intravenous Solu-Medrol 125 mg IV every 8 hours
[2017-08-08] MEDS: METHYLPREDNISOLONE INJ 125 MG/2 ML SDV IV SCH (22:45)
[2017-08-08] MEDS: AMITRIPTYLINE HCL 10 MG TABLET PO SCH (22:45)
[2017-08-08] MEDS: LEVOFLOXACIN 750 MG/D5W RTU 750 MG/150 ML RTUPB IV SCH (22:45)
[2017-08-08] MEDS: NORMAL SALINE 1000 ML 1,000 ML IV PRN (22:46)
[2017-08-09] MEDS: IPRATROPIUM/ALBUTEROL 0.5-2.5 MG/3 ML AMPUL NEB SCH ×4 (02:00→19:05)
[2017-08-09] MEDS: OXYCODONE-ACETAMINOPHEN 5-325 MG TABLET PO PRN ×4 (03:09→21:49)
[2017-08-09] MEDS: OXYCODONE HCL IR 5 MG TABLET PO PRN ×4 (03:09→21:49)
[2017-08-09 05:07] LABS: HEMATOCRIT 33.5 % (36.0-47.0); HEMOGLOBIN 11.5 g/dL (12.0-15.5); MEAN CORPUSCULAR HEMOGLOBIN 31.4 pg (27.0-33.4); MEAN CORPUSCULAR HGB CONC 34.2 g/dL (32.0-36.0); MEAN CORPUSCULAR VOLUME 92 fl (80-97); PLATELET COUNT 400 10^3/uL (150-450); RED BLOOD COUNT 3.65 10^6/uL (3.72-5.28); RED CELL DISTRIBUTION WIDTH 14.3 % (11.5-14.0); WHITE BLOOD COUNT 15.6 10^3/uL (4.0-10.5)
[2017-08-09] MEDS: METHYLPREDNISOLONE INJ 125 MG/2 ML SDV IV SCH ×3 (05:19→21:49)
[2017-08-09 05:20] LABS: ALANINE AMINOTRANSFERASE 20 U/L (9-52); ALBUMIN 3.9 g/dL (3.5-5.0); ALKALINE PHOSPHATASE 77 U/L (38-126); ANION GAP 12 (5-19); ASPARTATE AMINO TRANSFERASE 24 U/L (14-36); BILIRUBIN,DIRECT 0.2 mg/dL (0.0-0.4); BILIRUBIN,TOTAL 0.2 mg/dL (0.2-1.3); BLOOD UREA NITROGEN 3 mg/dL (7-20); CALCIUM 9.6 mg/dL (8.4-10.2); CARBON DIOXIDE 25 mmol/L (22-30); CHLORIDE 100 mmol/L (98-107); GLUCOSE 213 mg/dL (75-110); POTASSIUM 3.8 mmol/L (3.6-5.0); SODIUM 137.2 mmol/L (137-145)
[2017-08-09] MEDS: NORMAL SALINE 1000 ML 1,000 ML IV PRN ×2 (05:20→21:49)
[2017-08-09 06:16] LABS: ABSOLUTE LYMPHOCYTES# (MANUAL) 0.3 10^3/uL (0.5-4.7); ABSOLUTE MONOCYTES # (MANUAL) 0.3 10^3/uL (0.1-1.4); ABSOLUTE NEUTROPHILS# (MANUAL) 14.8 10^3/uL (1.7-8.2); BAND NEUTROPHILS % (MANUAL) 1 % (3-5); BASOPHILS % (MANUAL) 0 % (0-2); EOSINOPHILS % (MANUAL) 1 % (0-6); LYMPHOCYTES % (MANUAL) 2 % (13-45); MONOCYTES % (MANUAL) 2 % (3-13); SEGMENTED NEUTROPHILS % (MAN) 94 % (42-78); TOTAL CELLS COUNTED 100
[2017-08-09 06:18] LABS: PLATELET COMMENT ADEQUATE; PLATELET LARGE PRESENT
[2017-08-09] MEDS: HYDROCHLOROTHIAZIDE 25 MG TABLET PO SCH (09:23)
[2017-08-09] MEDS: LISINOPRIL 10 MG TABLET PO SCH (09:23)
[2017-08-09] MEDS: ENOXAPARIN SODIUM INJ 40 MG/0.4 ML DISP.SYRIN SUBCUT SCH (09:23)
[2017-08-09] MEDS: METFORMIN HCL 500 MG TABLET PO SCH ×2 (09:24→17:57)
[2017-08-09] MEDS ORDERED: ALBUTEROL SULFATE 0.083% NEB 2.5 MG/3 ML AMPUL NEB PRN (11:44)
--- NOTE | 2017-08-09 21:42 | PDOC PROGRESS REPORT ---
Subjective Progress Note for:: 08/09/17 Subjective:: Patient was admitted for the management of acute hypoxemic respiratory failure due to acute COPD exacerbation, presently on IV Solu-Medrol she endorses improvement in her condition though on auscultation of her chest she had diffuse expiratory wheezes Reason For Visit: ACUTE HYPOXEMIC RESPIRATORY FAILURE, CAUSE COPD Physical Exam Vital Signs: Temp Pulse Resp BP Pulse Ox 98.8 F 113 H 16 163/87 H 94 08/09/17 19:43 08/09/17 19:43 08/09/17 19:43 08/09/17 19:43 08/09/17 19:43 Intake & Output 08/08/17 08/09/17 08/10/17 06:59 06:59 06:59 Intake Total 2390 2400 1913 Output Total 1350 Balance 2390 1050 1913 Weight 106 kg 106 kg Head exam: PRESENT: atraumatic, normocephalic Eye exam: PRESENT: conjunctiva pink, EOMI, PERRLA Ear exam: PRESENT: normal external ear exam Mouth exam: PRESENT: moist, tongue midline Neck exam: PRESENT: full ROM Respiratory exam: PRESENT: accessory muscle use, wheezes Cardiovascular exam: PRESENT: RRR, +S1, +S2 Pulses: PRESENT: normal dorsalis pedis pul, +2 pedal pulses bilateral Vascular exam: PRESENT: normal capillary refill GI/Abdominal exam: PRESENT: normal bowel sounds, soft Rectal exam: PRESENT: deferred Neurological exam: PRESENT: alert Psychiatric exam: PRESENT: appropriate affect, normal mood Skin exam: PRESENT: dry, intact, warm. ABSENT: cyanosis, rash Results Laboratory Results: 08/09/17 04:45 08/09/17 04:45 08/09/17 08/09/17 04:45 04:45 WBC 15.6 H RBC 3.65 L Hgb 11.5 L Hct 33.5 L MCV 92 MCH 31.4 MCHC 34.2 RDW 14.3 H Plt Count 400 Seg Neutrophils % Not Reportable Lymphocytes % Not Reportable Monocytes % Not Reportable Eosinophils % Not Reportable Basophils % Not Reportable Absolute Neutrophils Not Reportable Absolute Lymphocytes Not Reportable Absolute Monocytes Not Reportable Absolute Eosinophils Not Reportable Absolute Basophils Not Reportable Sodium 137.2 Potassium 3.8 Chloride 100 Carbon Dioxide 25 Anion Gap 12 BUN 3 L Creatinine 0.45 L Est GFR ( Amer) > 60 Est GFR (Non-Af Amer) > 60 Glucose 213 H Calcium 9.6 Total Bilirubin 0.2 AST 24 ALT 20 Alkaline Phosphatase 77 Total Protein 7.0 Albumin 3.9 08/07/17 17:35 Clean Catch Midstream Urine Culture - Final NO GROWTH 2 DAYS 08/07/17 08/07/17 08/07/17 21:20 21:20 21:20 Creatine Kinase 112 104 CK-MB (CK-2) 1.10 Troponin I < 0.012 NT-Pro-B Natriuret Pep 472 H 08/07/17 08/08/17 08/08/17 21:20 03:45 03:45 Creatine Kinase 120 CK-MB (CK-2) Cancelled 1.72 Troponin I Cancelled < 0.012 NT-Pro-B Natriuret Pep 08/08/17 08/08/17 10:06 10:06 Creatine Kinase 115 CK-MB (CK-2) 2.13 Troponin I < 0.012 NT-Pro-B Natriuret Pep Impressions: Chest/Abdomen CTA 08/07/17 00:00 IMPRESSION: No emboli visualized in the main pulmonary arteries or the segmental branches.Scattered areas of ground-glass opacity and subsegmental atelectasis are present in both lungs, nonspecific findings. No consolidation or pleural effusion. Chest X-Ray 08/07/17 14:38 IMPRESSION: NO ACUTE RADIOGRAPHIC FINDING IN THE CHEST. Assessment & Plan - Diagnosis (1) Acute hypoxemic respiratory failure Is this a current diagnosis for this admission?: Yes (2) Acute exacerbation of chronic obstructive pulmonary disease (COPD) Is this a current diagnosis for this admission?: Yes - Plan Summary Plan Summary: She will continue IV Solu-Medrol, IV antibiotic, bronchodilators
[2017-08-09] MEDS: LEVOFLOXACIN 750 MG TABLET PO SCH (21:48)
[2017-08-09] MEDS: AMITRIPTYLINE HCL 10 MG TABLET PO SCH (21:49)
[2017-08-10] MEDS: IPRATROPIUM/ALBUTEROL 0.5-2.5 MG/3 ML AMPUL NEB SCH ×4 (02:09→20:55)
[2017-08-10] MEDS: OXYCODONE HCL IR 5 MG TABLET PO PRN ×4 (03:37→22:17)
[2017-08-10] MEDS: OXYCODONE-ACETAMINOPHEN 5-325 MG TABLET PO PRN ×4 (03:37→22:17)
[2017-08-10] MEDS: NORMAL SALINE 1000 ML 1,000 ML IV PRN (05:15)
[2017-08-10] MEDS: METHYLPREDNISOLONE INJ 125 MG/2 ML SDV IV SCH ×3 (06:05→22:29)
[2017-08-10 07:24] LABS: HEMATOCRIT 33.5 % (36.0-47.0); HEMOGLOBIN 11.2 g/dL (12.0-15.5); MEAN CORPUSCULAR HEMOGLOBIN 30.9 pg (27.0-33.4); MEAN CORPUSCULAR HGB CONC 33.6 g/dL (32.0-36.0); MEAN CORPUSCULAR VOLUME 92 fl (80-97); PLATELET COUNT 398 10^3/uL (150-450); RED BLOOD COUNT 3.64 10^6/uL (3.72-5.28); RED CELL DISTRIBUTION WIDTH 14.4 % (11.5-14.0); WHITE BLOOD COUNT 23.2 10^3/uL (4.0-10.5)
[2017-08-10 07:44] LABS: ALANINE AMINOTRANSFERASE 19 U/L (9-52); ALBUMIN 3.8 g/dL (3.5-5.0); ALKALINE PHOSPHATASE 73 U/L (38-126); ANION GAP 12 (5-19); ASPARTATE AMINO TRANSFERASE 17 U/L (14-36); BLOOD UREA NITROGEN 5 mg/dL (7-20); CALCIUM 9.8 mg/dL (8.4-10.2); CARBON DIOXIDE 26 mmol/L (22-30); CHLORIDE 101 mmol/L (98-107); GLUCOSE 143 mg/dL (75-110); POTASSIUM 3.8 mmol/L (3.6-5.0); SODIUM 138.6 mmol/L (137-145); TOTAL PROTEIN 6.6 g/dL (6.3-8.2)
[2017-08-10 07:46] LABS: BILIRUBIN,TOTAL < 0.1 mg/dL (0.2-1.3)
[2017-08-10 08:20] LABS: ABSOLUTE MONOCYTES # (MANUAL) 0.9 10^3/uL (0.1-1.4); ABSOLUTE NEUTROPHILS# (MANUAL) 19.3 10^3/uL (1.7-8.2); ANISOCYTOSIS SLIGHT; BASOPHILS % (MANUAL) 0 % (0-2); EOSINOPHILS % (MANUAL) 0 % (0-6); LYMPHOCYTES % (MANUAL) 13 % (13-45); MONOCYTES % (MANUAL) 4 % (3-13); PLATELET COMMENT ADEQUATE; SEGMENTED NEUTROPHILS % (MAN) 83 % (42-78); TOTAL CELLS COUNTED 100
[2017-08-10] MEDS: HYDROCHLOROTHIAZIDE 25 MG TABLET PO SCH (10:10)
[2017-08-10] MEDS: LISINOPRIL 10 MG TABLET PO SCH (10:10)
[2017-08-10] MEDS: ENOXAPARIN SODIUM INJ 40 MG/0.4 ML DISP.SYRIN SUBCUT SCH (10:11)
[2017-08-10] MEDS: METFORMIN HCL 500 MG TABLET PO SCH ×2 (10:11→16:08)
--- NOTE | 2017-08-10 22:10 | PDOC PROGRESS REPORT ---
Subjective Progress Note for:: 08/10/17 Subjective:: She is seen by the bedside, she is improved today for the first time, on auscultation of the chest there is minimal wheeze Reason For Visit: ACUTE HYPOXEMIC RESPIRATORY FAILURE, CAUSE COPD Physical Exam Vital Signs: Temp Pulse Resp BP Pulse Ox 98.4 F 99 18 167/91 H 97 08/10/17 20:08 08/10/17 20:08 08/10/17 20:08 08/10/17 20:08 08/10/17 20:08 Intake & Output 08/09/17 08/10/17 08/11/17 06:59 06:59 06:59 Intake Total 2400 2153 2667 Output Total 1350 350 Balance 1050 1803 2667 Weight 106 kg 106 kg General appearance: PRESENT: no acute distress Head exam: PRESENT: atraumatic, normocephalic Eye exam: PRESENT: PERRLA. ABSENT: scleral icterus Neck exam: PRESENT: full ROM Respiratory exam: PRESENT: wheezes Cardiovascular exam: PRESENT: RRR, +S1, +S2 Pulses: PRESENT: normal dorsalis pedis pul, +2 pedal pulses bilateral Vascular exam: PRESENT: normal capillary refill GI/Abdominal exam: PRESENT: normal bowel sounds, soft Rectal exam: PRESENT: deferred Neurological exam: PRESENT: alert Psychiatric exam: PRESENT: appropriate affect, normal mood Skin exam: PRESENT: dry, intact, warm Results Laboratory Results: 08/10/17 07:00 08/10/17 07:00 08/10/17 08/10/17 07:00 07:00 WBC 23.2 H RBC 3.64 L Hgb 11.2 L Hct 33.5 L MCV 92 MCH 30.9 MCHC 33.6 RDW 14.4 H Plt Count 398 Seg Neutrophils % Not Reportable Lymphocytes % Not Reportable Monocytes % Not Reportable Eosinophils % Not Reportable Basophils % Not Reportable Absolute Neutrophils Not Reportable Absolute Lymphocytes Not Reportable Absolute Monocytes Not Reportable Absolute Eosinophils Not Reportable Absolute Basophils Not Reportable Sodium 138.6 Potassium 3.8 Chloride 101 Carbon Dioxide 26 Anion Gap 12 BUN 5 L Creatinine 0.45 L Est GFR ( Amer) > 60 Est GFR (Non-Af Amer) > 60 Glucose 143 H Calcium 9.8 Total Bilirubin < 0.1 L AST 17 ALT 19 Alkaline Phosphatase 73 Total Protein 6.6 Albumin 3.8 08/07/17 08/07/17 08/07/17 21:20 21:20 21:20 Creatine Kinase 112 104 CK-MB (CK-2) 1.10 Troponin I < 0.012 NT-Pro-B Natriuret Pep 472 H 08/07/17 08/08/17 08/08/17 21:20 03:45 03:45 Creatine Kinase 120 CK-MB (CK-2) Cancelled 1.72 Troponin I Cancelled < 0.012 NT-Pro-B Natriuret Pep 08/08/17 08/08/17 10:06 10:06 Creatine Kinase 115 CK-MB (CK-2) 2.13 Troponin I < 0.012 NT-Pro-B Natriuret Pep Impressions: Chest/Abdomen CTA 08/07/17 00:00 IMPRESSION: No emboli visualized in the main pulmonary arteries or the segmental branches.Scattered areas of ground-glass opacity and subsegmental atelectasis are present in both lungs, nonspecific findings. No consolidation or pleural effusion. Chest X-Ray 08/07/17 14:38 IMPRESSION: NO ACUTE RADIOGRAPHIC FINDING IN THE CHEST. Assessment & Plan - Diagnosis (1) Acute hypoxemic respiratory failure Is this a current diagnosis for this admission?: Yes (2) Acute exacerbation of chronic obstructive pulmonary disease (COPD) Is this a current diagnosis for this admission?: Yes Plan: Decrease Solu-Medrol to 60 mg IV every 8
[2017-08-10] MEDS: LEVOFLOXACIN 750 MG TABLET PO SCH (22:17)
[2017-08-10] MEDS: AMITRIPTYLINE HCL 10 MG TABLET PO SCH (22:17)
[2017-08-11] MEDS: IPRATROPIUM/ALBUTEROL 0.5-2.5 MG/3 ML AMPUL NEB SCH ×3 (01:34→13:56)
[2017-08-11] MEDS: OXYCODONE HCL IR 5 MG TABLET PO PRN ×2 (04:19→10:42)
[2017-08-11] MEDS: OXYCODONE-ACETAMINOPHEN 5-325 MG TABLET PO PRN ×2 (04:19→10:42)
[2017-08-11] MEDS: METHYLPREDNISOLONE INJ 125 MG/2 ML SDV IV SCH ×2 (05:37→15:26)
[2017-08-11] MEDS: ENOXAPARIN SODIUM INJ 40 MG/0.4 ML DISP.SYRIN SUBCUT SCH (09:42)
[2017-08-11] MEDS: LISINOPRIL 10 MG TABLET PO SCH (09:42)
[2017-08-11] MEDS: METFORMIN HCL 500 MG TABLET PO SCH ×2 (09:42→15:26)
[2017-08-11] MEDS: HYDROCHLOROTHIAZIDE 25 MG TABLET PO SCH (09:42)
[2017-08-11] MEDS ORDERED: LORAZEPAM INJ 2 MG/1 ML VIAL IV ONE (16:00)
--- NOTE | 2017-08-11 17:32 | PDOC DISCHARGE SUMMARY ---
General - Admit/Disc Date/PCP Admission Date/Primary Care Provider: 08/07/17 16:30 KELSEA KING MD Discharge Date: 08/11/17 - Discharge Diagnosis (1) Acute hypoxemic respiratory failure Is this a current diagnosis for this admission?: Yes (2) Acute exacerbation of chronic obstructive pulmonary disease (COPD) Is this a current diagnosis for this admission?: Yes - Additional Information Resuscitation Status: Full Code Prescriptions: RX: Levofloxacin [Levaquin 750 mg Tablet] 750 mg PO QHS #5 tablet Albuterol Sulfate [Proair HFA] 2 puff IH Q4 PRN #1 inhaler PRN Reason: Alprazolam [Xanax] 0.25 mg PO DAILY #5 tablet Budesonide/Formoterol Fumarate [Symbicort Hfa 160-4.5 Mcg Inhaler 6 gm] 2 puff IH Q12 #1 inhaler RX: Prednisone 20 mg PO DAILY #20 tablet Home Medications: RX: Amitriptyline HCl [Elavil 10 mg Tablet] 10 mg PO QHS 08/07/17 RX: Lisinopril/Hydrochlorothiazide [Lisinopril-Hctz 20-25 mg Tab] 1 each PO DAILY 08/07/17 RX: Metformin HCl [Glucophage 500 mg Tablet] 500 mg PO BIDACBS 08/07/17 Albuterol Sulfate [Proair HFA] 2 puff IH Q4 PRN #1 inhaler 08/11/17 Alprazolam [Xanax] 0.25 mg PO DAILY #5 tablet 08/11/17 Budesonide/Formoterol Fumarate [Symbicort Hfa 160-4.5 Mcg Inhaler 6 gm] 2 puff IH Q12 #1 inhaler 08/11/17 RX: Levofloxacin [Levaquin 750 mg Tablet] 750 mg PO QHS #5 tablet 08/11/17 RX: Prednisone 20 mg PO DAILY #20 tablet 08/11/17 History of Present Illness History of Present Illness: TANMAY SIMPSON is a 42 year old fEMALE She came to the emergency room this afternoon for evaluation of shortness of breath coughing wheezing, progressive for the last 3 days. She was seen and evaluated in the emergency room when she arrived the oxygen saturation was 85% on room air the hemogram, WBC 20,000 with a left shift, she was treated with bronchodilators, IV antibiotic. The chest x- ray that was done did not show any acute infiltrate to suggest pneumonia. Hospital Course Hospital Course: Patient was admitted for the management of acute hypoxemic respiratory failure due to acute COPD exacerbation. It was felt initially that she may have pneumonia, the CT chest that was done showed groundglass appearance of the lung , there was audible wheeze requiring Solu-Medrol, bronchodilators with good result patient is much improved with this regimen, she will be discharge home today Physical Exam Vital Signs: Temp Pulse Resp BP Pulse Ox 98.1 F 118 H 20 158/92 H 96 08/11/17 03:54 08/11/17 13:56 08/11/17 13:56 08/11/17 03:54 08/11/17 13:56 Intake & Output 08/10/17 08/11/17 08/12/17 06:59 06:59 06:59 Intake Total 2153 5269 Output Total 350 Balance 1803 5269 Weight 106 kg 108.8 kg General appearance: PRESENT: no acute distress, well-developed, well-nourished Head exam: PRESENT: atraumatic, normocephalic Eye exam: PRESENT: conjunctiva pink, EOMI, PERRLA Ear exam: PRESENT: normal external ear exam Mouth exam: PRESENT: moist, tongue midline Neck exam: PRESENT: full ROM Respiratory exam: PRESENT: clear to auscultation nicki Cardiovascular exam: PRESENT: RRR, +S1, +S2 Pulses: PRESENT: normal dorsalis pedis pul, +2 pedal pulses bilateral Vascular exam: PRESENT: normal capillary refill GI/Abdominal exam: PRESENT: normal bowel sounds, soft Rectal exam: PRESENT: deferred Neurological exam: PRESENT: alert, awake, oriented to person, oriented to place , oriented to time, oriented to situation, CN II-XII grossly intact Psychiatric exam: PRESENT: appropriate affect, normal mood Skin exam: PRESENT: dry, intact, warm Results Laboratory Results: 08/10/17 07:00 08/10/17 07:00 08/07/17 08/07/17 08/07/17 21:20 21:20 21:20 Creatine Kinase 112 104 CK-MB (CK-2) 1.10 Troponin I < 0.012 NT-Pro-B Natriuret Pep 472 H 08/07/17 08/08/17 08/08/17 21:20 03:45 03:45 Creatine Kinase 120 CK-MB (CK-2) Cancelled 1.72 Troponin I Cancelled < 0.012 NT-Pro-B Natriuret Pep 08/08/17 08/08/17 10:06 10:06 Creatine Kinase 115 CK-MB (CK-2) 2.13 Troponin I < 0.012 NT-Pro-B Natriuret Pep Impressions: Chest/Abdomen CTA 08/07/17 00:00 IMPRESSION: No emboli visualized in the main pulmonary arteries or the segmental branches.Scattered areas of ground-glass opacity and subsegmental atelectasis are present in both lungs, nonspecific findings. No consolidation or pleural effusion. Chest X-Ray 08/07/17 14:38 IMPRESSION: NO ACUTE RADIOGRAPHIC FINDING IN THE CHEST.
[2017-08-11 18:01] VITALS: BP 165/85
== END 2017-08-11 18:17 | disposition home or self-care (01) | DRG 190 ==
LOC: ER 14:14 → EH 16:30 → 4S 19:49
PROVIDERS: ADMIT Internal Medicine; ATTEND Internal Medicine
PROC: 3E0F73Z Introduction of Anti-inflammatory into Respiratory Tract, Via Natural or Artificial Opening (ICD-10-PCS; principal; 2017-08-09)
DX: J44.1 Chronic obstructive pulmonary disease with (acute) exacerbation (principal); J96.01 Acute respiratory failure with hypoxia; I10 Essential (primary) hypertension; E11.9 Type 2 diabetes mellitus without complications; F32.9 Major depressive disorder, single episode, unspecified; F17.210 Nicotine dependence, cigarettes, uncomplicated; Z79.84 Long term (current) use of oral hypoglycemic drugs
CPT/HCPCS: 36415; 36600; 71045; 71275; 80048; 80053; 80061; 80076; 80307; 81001; 81025; 82140; 82150; 82550; 82553; 82803; 83036; 83605; 83690; 83880; 84100; 84439; 84443; 84484; 85025; 85730; 87040; 87086; 94640; 96374; 99285; J0456; J0696; J1650; J1956; J2060; J2930; J3475; J3490; J7030; J7620

== ENCOUNTER 2018-04-06 20:46 | Emergency (ER) | payer BC ==
[2018-04-07] MEDS ORDERED: OXYCODONE-ACETAMINOPHEN 5-325 MG TABLET PO ONE (00:10)
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
--- NOTE | 2018-04-07 02:15 | RADIOLOGY REPORT (SQ) ---
EXAM DESCRIPTION: CT CERVICAL SPINE WITHOUT IV CONTRAST COMPLETED DATE/TME: 04/07/2018 00:09 CLINICAL HISTORY: Injury/pain COMPARISON: None available TECHNIQUE: Axial CT of the cervical spine obtained without contrast. FINDINGS: Alignment of the cervical spine is maintained without evidence of subluxation. The atlantoaxial, atlantodental, and occipitoatlantal intervals are preserved. No acute fracture or subluxation. Identified. Vertebral body height preserved. Prevertebral soft tissues are unremarkable. Intervertebral disc height preserved. No definite central canal nor osseous neural foraminal narrowing. Visualized skull base is intact. No fracture of the visualized facial bones. Visualized mastoid air cells and paranasal sinuses are well aerated. Visualized thyroid is unremarkable. No cervical lymphadenopathy. No pneumothorax in the visualized lung apices. DLP: 372.58 mGy-cm IMPRESSION: 1. No acute fracture or subluxation of the cervical spine. This exam was performed according to our departmental dose-optimization program, which includes automated exposure control, adjustment of the mA and/or kV according to patient size and/or use of iterative reconstruction technique.
[2018-04-07 02:37] VITALS: BP 163/103
== END 2018-04-07 02:43 | disposition home or self-care (01) ==
LOC: ER 20:46
DX: S06.0X0A Concussion without loss of consciousness, initial encounter (principal); S16.1XXA Strain of muscle, fascia and tendon at neck level, initial encounter; S46.911A Strain of unspecified muscle, fascia and tendon at shoulder and upper arm level, right arm, initial encounter; R51 Headache; M54.2 Cervicalgia; M25.511 Pain in right shoulder; M79.10 Myalgia, unspecified site; Y00.XXXA Assault by blunt object, initial encounter; Y92.009 Unspecified place in unspecified non-institutional (private) residence as the place of occurrence of the external cause; F17.210 Nicotine dependence, cigarettes, uncomplicated; I10 Essential (primary) hypertension; E11.9 Type 2 diabetes mellitus without complications; M54.9 Dorsalgia, unspecified; G89.29 Other chronic pain; Z79.891 Long term (current) use of opiate analgesic
CPT/HCPCS: 70450; 72125; 99284